=== PATIENT | female | born 1970 | race Caucasian/White ===

== ENCOUNTER 2016-08-25 13:35 | Emergency (ER) | payer BC, OTHER ==
[2016-08-25 13:50] VITALS: BP 145/88; PULSE 75; RESP 18; TEMP 98; O2SAT 97
--- NOTE | 2016-08-25 16:04 | EDPHY ---
H & P Time Seen by Provider: 08/25/16 14:53 HPI/ROS: CHIEF COMPLAINT: Left hand laceration HISTORY OF PRESENT ILLNESS: 46-year-old female presents emergency department with a puncture wound from scissors to her left hand. Patient was opening a package in the scissors slipped poking her in the thenar eminence of her left hand. Tetanus is up-to-date, no numbness or tingling in her hand, no other complaints. Smoking Status: Never smoked Physical Exam: GEN: Awake, alert, oriented, no acute distress RESP: nl resp effort MSK: Left hand with no numbness or tingling, full active flexion and extension of left thumb against resistance, cap refill less than 2 seconds, 2+ radial pulses SKIN: 1 cm puncture wound to palmar aspect of left hand in thenar eminence Constitutional: Initial Vital Signs Temperature (C) 36.6 C 08/25/16 13:46 Heart Rate 75 08/25/16 13:46 Respiratory Rate 18 08/25/16 13:46 Blood Pressure 145/88 H 08/25/16 13:46 O2 Sat (%) 97 08/25/16 13:46 O2 Delivery Mode Room Air Allergies/Adverse Reactions: Sulfa (Sulfonamide Antibiotics) Allergy (Intermediate, Verified 01/29/10 07:22) morphine [Morphine] Adverse Reaction (Mild, Verified 01/29/10 07:50) nausea/vomiting Home Medications: Medication Instructions Recorded None 01/29/10 Cephalexin [Keflex] 500 mg PO QID 5 Days 08/25/16 MDM/Departure - MDM Procedures: 1 cm laceration to thenar eminence was anesthetized with 1% lidocaine with epinephrine, puncture wound was cleaned and irrigated by the emergency department fisheries technician and dressing was placed. This was not sutured to prevent infection. Dressing was placed. Patient will be sent home with Keflex. She is given the hand doctor to follow up with for any new symptoms or concerns. She is given strict return precautions for any signs of infection. - Depart Disposition: Home, Routine, Self-Care Clinical Impression: Puncture wound of left hand Qualifiers: Encounter type: initial encounter Foreign body presence: without foreign body Qualified Code(s): S61.432A - Puncture wound without foreign body of left hand, initial encounter Condition: Good Instructions: Puncture Wound (ED) Additional Instructions: Soak your hand 3 times a day for 5 minutes in warm water, then place Band-Aid. Take the antibiotics as prescribed. Follow up with the hand doctor for any new symptoms or concerns. Return to the emergency department for any signs of infection, fevers, increased pain, drainage, redness or any numbness to your hand. Prescriptions: Cephalexin [Keflex] 500 mg PO QID 5 Days [facility]errals: [facility] [Other] - As per Instructions
== END 2016-08-25 16:18 | disposition home or self-care (01) ==
LOC: CED 13:35
PROC: 2W2FX4Z Dressing of Left Hand using Bandage (ICD-10-PCS; principal; 2016-08-25)
DX: S61.432A Puncture wound without foreign body of left hand, initial encounter (principal); W27.2XXA Contact with scissors, initial encounter; Y93.E9 Activity, other interior property and clothing maintenance; Y99.8 Other external cause status
CPT/HCPCS: 99214-PO; G0463-PO